=== PATIENT | male | born 1985 | race Two or more races ===

== ENCOUNTER 2025-01-21 06:35 | Day surgery (SDC) | payer BC, SELFPAY ==
[2025-01-18 10:54] VITALS: BMI 30.1
[2025-01-18 11:40] LABS: Basophils # (Auto) 0.1 Thou/mm3 (0.0-0.2); Basophils % (Auto) 1 % (0-2.5); Eosinophils # (Auto) 0.2 Thou/mm3 (0.0-0.5); Eosinophils % (Auto) 3 % (0-10); Hematocrit 42.8 % (41.0-53.0); Hemoglobin 14.9 g/dL (13.5-16.0); Immature Granulocytes % (Auto) 0 % (0-0); Immature Granulocytes Auto 0.03 Thou/mm3 (0.00-0.00); Lymphocytes # (Auto) 2.9 Thou/mm3 (1.0-4.8); Lymphocytes % (Auto) 40 % (10-50); Mean Corpuscular HGB Conc 34.8 g/dl (31.0-37.0); Mean Corpuscular Hemoglobin 29.5 pg (25.0-35.0); Mean Corpuscular Volume 85 fL (80-100); Monocytes # (Auto) 0.6 Thou/mm3 (0.0-0.8); Monocytes % (Auto) 8 % (0-12); Neutrophils # (Auto) 3.4 Thou/mm3 (1.8-7.7); Neutrophils % (Auto) 48 % (37-80); Nucleated Red Blood Cell % 0 /100 WBC (0); Platelet Count 232 Thou/mm3 (140-440); RDW Standard Deviation 37.9 fL (35.1-43.9); Red Blood Count 5.05 Miln/mm3 (4.50-5.90); White Blood Count 7.2 Thou/mm3 (3.8-10.6)
[2025-01-18 11:43] LABS: Anion Gap 6 (7-16); BUN/Creatinine Ratio 13 Ratio (12-20); Blood Urea Nitrogen 14 mg/dL (9-23); Calcium 9.6 mg/dL (8.3-10.6); Carbon Dioxide 27.7 mMol/L (20.0-31.0); Chloride 106 mMol/L (98-107); Creatinine (Component) 1.1 mg/dL (0.6-1.3); Estimated Creatinine Clearance 105.4 mL/min (>60); Glucose 124 mg/dL (74-106); Osmolality,Calculated 280 (275-295); Sodium 140 mMol/L (136-145); eGFR > 60 See Note
[2025-01-21] VITALS (8 sets, daily range): BP systolic 93–149; BP diastolic 54–96; PULSE 64–89; RESP 12–18; TEMP 36.2–36.4; O2SAT 94–97; BMI 29.9
--- NOTE | 2025-01-21 09:25 | SUR.PHASEI ---
pt received from OR in recovery bay 5. pt obtunded, breathing unlabored on oxymask 8l, oral airway in place. v/s stable. pt dressing to right buttocks area cdi. report received from Natalia ESCOTO and Brittnee JACKSON.
--- NOTE | 2025-01-21 09:25 | PD.SUROPNT ---
Date of Procedure 01/21/25 Pre Op Diagnosis Right buttock mass Post Op Diagnosis Right intersphincteric anal fistula Procedure Ligation of intersphincteric fistula tract and distal fistulectomy Findings Patient was noted to have right perianal fistula that was intersphincteric. Secondary opening was on the right lateral aspect approximately 3 cm from anal verge, primary opening was just above the dentate line on the right side Procedure Description Patient was taken to the operating room in supine position. After administration of general tracheal anesthesia, patient was placed in high lithotomy position. His perineum was prepped and draped in standard surgical manner. He was noted to have a right buttock lesion approximately 3 cm right lateral to anal verge with some granulation tissue. A lacrimal duct probe was placed and there was a track extending to the anal canal just above the dentate line on the right side, findings were consistent with intersphincteric anal fistula. An approximately 2 cm elliptical incision was made around the primary opening with the lacrimal duct probe in place. Dissection was deepened into soft tissue and around the fistula tract in the distal fistula tract was excised. A pursestring suture was placed around the primary opening and the primary opening was closed. The distal aspect of the fistula tract was also ligated with a pursestring suture using 2-0 Vicryl. Subcutaneous tissue of the secondary opening closed with interrupted sutures using 3-0 Vicryl and incision was closed with 4-0 Monocryl in subcuticular fashion. Dermabond applied. Patient tolerated procedure well. Hemostasis was adequate and satisfactory. He was placed in supine position and extubated. He was breathing spontaneously and without difficulty and was transferred to postanesthesia care in stable condition. Instruments, needles and sponge counts were reported to be correct x 2. Anesthesia GETA and local Pathology / specimen Other (Fistula tract) Estimated Blood Loss 2 Condition Stable Disposition PACU Surgeon Blanca Kwon MD Surgical Staff Operation Date: 01/21/25 08:30 Case Staff COMPUTER INFORMATION SCIENCE PROFESSOR: Mikki Bryant RN First Assistant: Monique Jha
--- NOTE | 2025-01-21 09:50 | SUR.PHASEI ---
pt able to tolerate oral fluids without difficulty swallowing or nausea/vomiting.
--- NOTE | 2025-01-21 10:38 | SUR.PHASEII ---
pt awake and alert, breathing unlabored on room air. v/s stable. pt dressing to right janis anal area cdi. pt able to ambulate to wheelchair with steady gait. d/c instructions given with parents in room using educational interpreter Liudmila uriarte, all questions answered. pt d/c via wheelchair with all belongings.
== END 2025-01-21 10:38 | disposition home or self-care (01) ==
PROVIDERS: PCP Family Medicine; Referring Provider Surgery; Visit Provider Surgery
PROC: (CPT 46275; principal; 2025-01-21 08:30)
DX: K60.30 Anal fistula, unspecified (principal)
CPT/HCPCS: 46275; 36415; 80048; 85025; A4217; A4649; J0690; J1100; J2250; J2405; J2704; J3010; J3490